=== PATIENT | male | born 1965 | race Caucasian/White ===

== ENCOUNTER 2025-04-16 14:28 | Outpatient (REF) | payer MEDICARE, MEDICAID, SELFPAY | END 2025-04-16 14:29 | disposition home or self-care (01) | LOC: HO.SH 14:28 | PROVIDERS: Visit Provider Internal Medicine | DX: Z01.118 Encounter for examination of ears and hearing with other abnormal findings (principal); H61.22 Impacted cerumen, left ear | CPT/HCPCS: 92567 ==